=== PATIENT | male | born 1940 | race Caucasian/White ===

== ENCOUNTER 2021-06-29 18:58 | Emergency (ER) | payer MEDICARE, OTHER ==
[2021-06-29] MEDS ORDERED: Ondansetron PF 4 MG/2 ML Vial ONE (20:12)
[2021-06-29 20:33] LABS: #Monocytes 0.9 10x3/uL (0.0-1.1); #Neutrophils 8.6 10x3/uL (1.5-8.4); %Basophils 0.4 % (0.0-2.0); %Eosinophils 0.3 % (0.0-6.0); %Lymphocytes 6.7 % (18.0-47.0); %Monocytes 8.3 % (0.0-10.0); %Neutrophils 83.9 % (40.0-75.0); Hemoglobin 14.3 g/dL (13.5-17.5); Mean Corpuscular HGB CONC 33.8 g/dL (32.0-36.0); Mean Corpuscular Hemoglobin 31.5 pg (27.0-33.0); Mean Corpuscular Volume 93.2 fl (81.2-95.1); Platelet Count 166 10x3/uL (150-450); RBC Distribution Width 12.2 % (11.5-14.5); Red Blood Cell (RBC) Count 4.54 10x6/uL (4.32-5.72); White Blood Cell (WBC) Count 10.2 10x3/uL (3.5-10.5)
[2021-06-29 20:42] LABS: ALT (SGPT) 19 U/L (8-55); AST (SGOT) 25 U/L (5-34); Albumin 4.1 g/dL (3.4-4.8); Alkaline Phosphatase 91 U/L (40-110); Anion Gap 13 mmol/L (10-20); BUN (Urea Nitrogen) 17 mg/dL (8.4-25.7); Bilirubin, Total 1.7 mg/dL (0.2-1.2); Calc. Creatinine Clearance 0 mL/min (70-130); Calcium 9.6 mg/dL (7.8-10.44); Carbon Dioxide 23 mmol/L (23-31); Chloride 98 mmol/L (98-107); Globulin 2.8 g/dL (2.4-3.5); Glucose 106 mg/dL (83-110); Potassium 3.9 mmol/L (3.5-5.1); Protein, Total 6.9 g/dL (5.8-8.1); Sodium 130 mmol/L (136-145)
[2021-06-29] MEDS ORDERED: hydrALAZINE 20 MG/ML VIAL ONE (21:15)
[2021-06-29] MEDS ORDERED: Morphine 4 MG/ML VIAL ONE (22:19)
[2021-06-29] MEDS ORDERED: Metoprolol Tartrate 5 MG/5 ML VIAL ONE (23:25)
== END 2021-06-30 00:40 | disposition home or self-care (01) ==
LOC: CSHERS 18:58
PROC: 0T7D8DZ Dilation of Urethra with Intraluminal Device, Via Natural or Artificial Opening Endoscopic (ICD-10-PCS; principal; 2021-06-29)
DX: I10 Essential (primary) hypertension (principal); G89.18 Other acute postprocedural pain; G44.89 Other headache syndrome; I49.8 Other specified cardiac arrhythmias; I49.3 Ventricular premature depolarization; I49.1 Atrial premature depolarization; I51.7 Cardiomegaly; N13.8 Other obstructive and reflux uropathy; R39.12 Poor urinary stream; R39.14 Feeling of incomplete bladder emptying; M19.90 Unspecified osteoarthritis, unspecified site; K21.9 Gastro-esophageal reflux disease without esophagitis; M45.6 Ankylosing spondylitis lumbar region; Z87.891 Personal history of nicotine dependence; Z79.899 Other long term (current) drug therapy
CPT/HCPCS: 51798; 71045; 80053; 83880; 84484; 85025; 93005; 93010; 96374; 96375; J0360; J1956; J2270; J2405; J2704; J3010; L8699

== ENCOUNTER 2023-09-24 09:57 | Day surgery (SDC) | payer MEDICARE, OTHER ==
[2023-09-23 09:16] VITALS: BMI 28.5
[2023-09-24] MEDS ORDERED: Bupivacaine PF 0.5% 30 ML VIAL ONE (11:06)
[2023-09-24] MEDS ORDERED: Lidocaine 1% PF 5 ML VIAL ONE (11:29)
[2023-09-24] MEDS ORDERED: fentaNYL 50 mcg/mL 1 mL Vial ONE (11:29)
[2023-09-24] MEDS ORDERED: PROPOFOL 20 ML ONE (11:29)
[2023-09-24] MEDS ORDERED: Midazolam HCl 2 mg/2 ml Vial ONE (11:29)
[2023-09-24] MEDS ORDERED: Ondansetron PF 4 MG/2 ML Vial ONE (11:29)
[2023-09-24] MEDS ORDERED: Lidocaine 2% PF 5 ML VIAL ONE (11:30)
[2023-09-24] MEDS ORDERED: CEFAZOLIN 2 GM VIAL ONE (11:50)
== END 2023-09-24 14:20 | disposition home or self-care (01) ==
LOC: CSHSDC 09:57
PROVIDERS: ATTEND Podiatrist Foot & Ankle Surgery
PROC: 0Y6R0Z3 Detachment at Right 2nd Toe, Low, Open Approach (ICD-10-PCS; principal; 2023-09-24)
DX: L97.519 Non-pressure chronic ulcer of other part of right foot with unspecified severity (principal); L57.0 Actinic keratosis; I10 Essential (primary) hypertension; M19.90 Unspecified osteoarthritis, unspecified site; K21.9 Gastro-esophageal reflux disease without esophagitis; Z87.891 Personal history of nicotine dependence; Z79.899 Other long term (current) drug therapy; Z88.8 Allergy status to other drugs, medicaments and biological substances
CPT/HCPCS: 28825; 73620; J3010; J2001; J2250; J2405; J2704; S0020